=== PATIENT | female | born 2000 | race Caucasian/White ===

== ENCOUNTER 2020-07-06 11:28 | Inpatient (IN) | payer OTHER ==
[~2020-07-06] VITALS: Ht 175.3 cm; Wt 67.1 kg
--- NOTE | 2020-07-07 08:59 | PR ---
[facility] [address] [facility] [place], [place] [address] Signed PP Progress Notes Datetime Report Generated by SHAWN: 07/07/2020 08:59 SUBJECTIVE: [id number] Pain: Within Normal Limits Nausea/Vomiting: Denies Vital Signs: [id number] Vital Signs: Reviewed; Within Normal Limits EXAM: Ongoing Cardiovascular: Not Done Respiratory: Not Done Abdomen/Uterus: Abnormal Lochia: Normal Vulva/Perineum: Not Done Breasts: Not Done CVA Tenderness: Not Done Incision: Not Applicable Progress: Normal Exam Comments: Fundus firm, NT @ U-2. H/H 9.5/30.7, WBC 16.9, plat 228k IMPRESSION/PLAN/PROCEDURES: [id number] Impression: Normal Progression Plan: Continue Present Management Progress Notes: Doing well. Will continue routine care. Signing Physician: Jesusita Rahman MD Copies: ~ *Electronically Signed* 07/07/20 0859 JESUSITA RAHMAN MD PATIENT NAME: DIANE GUARDADO PROGRESS NOTE DATE OF : 00 PHYSICIAN: JESUSITA RAHMAN MD RPT #: [id number] REPORT IS CONFIDENTIAL AND NOT TO BE RELEASED WITHOUT AUTHORIZATION
--- NOTE | 2020-07-08 07:15 | PR ---
[facility] [address] [place], [place] [address] Signed PP Progress Notes Datetime Report Generated by CPN: 07/08/2020 07:15 SUBJECTIVE: [id number] Pain: Within Normal Limits Nausea/Vomiting: Denies Vital Signs: [id number] Vital Signs: Reviewed; Within Normal Limits EXAM: Ongoing Cardiovascular: Not Done Respiratory: Not Done Abdomen/Uterus: Abnormal Lochia: Normal Vulva/Perineum: Not Done Breasts: Not Done CVA Tenderness: Not Done Extremities: Normal Incision: Not Applicable Progress: Normal Exam Comments: Fundus firm, NT @ U-3. IMPRESSION/PLAN/PROCEDURES: [id number] Impression: Normal Progression Plan: Discharge Progress Notes: Doing well. She is ready for D/C. Signing Physician: Jesusita Rahman MD Copies: ~ *Electronically Signed* 07/08/20 0715 JESUSITA RAHMAN MD PATIENT NAME: DIANE GUARDADO PROGRESS NOTE DATE OF : 00 PHYSICIAN: JESUSITA RAHMAN MD RPT #: [id number] REPORT IS CONFIDENTIAL AND NOT TO BE RELEASED WITHOUT AUTHORIZATION
== END 2020-07-08 11:40 | disposition home or self-care (01) | DRG 807 ==
LOC: FBCO 11:28 → FBC 11:58
PROVIDERS: ADMIT Obstetrics & Gynecology; ATTEND Obstetrics & Gynecology
PROC: 10E0XZZ Delivery of Products of Conception, External Approach (ICD-10-PCS; principal; 2020-07-06)
PROC: 10907ZC Drainage of Amniotic Fluid, Therapeutic from Products of Conception, Via Natural or Artificial Opening (ICD-10-PCS; 2020-07-06)
PROC: 0UQMXZZ Repair Vulva, External Approach (ICD-10-PCS; 2020-07-06)
DX: O69.81X0 Labor and delivery complicated by cord around neck, without compression, not applicable or unspecified (principal); Z37.0 Single live birth; O70.0 First degree perineal laceration during delivery; Z3A.40 40 weeks gestation of pregnancy
CPT/HCPCS: 36415; 85027; J2590